=== PATIENT | male | born 1980 | race Caucasian/White ===

== ENCOUNTER → 2018-02-04 10:21 | Outpatient (CLI) | payer OTHER, SELFPAY ==
[2018-02-04 12:00] LABS: Hematocrit 43.7 % (40-54); Hemoglobin 14.7 g/dl (13.0-16.5); Mean Corp Hgb Conc 33.6 g/gl (32-36); Mean Corpuscular Hgb 28.7 pg (27.0-32.0); Mean Corpuscular Volume 85.2 fL (80-94); Mean Platelet Vol. 10.3 fl (6.2-12.0); Platelet Count 274 K/mm3 (150-450); RBC Distribution Width CV 13.2 % (11.6-14.6); RBC Distribution Width SD 40.9 fl (35.1-43.9); Red Blood Count 5.13 M/mm3 (4.6-6.2); White Blood Count 4.3 K/mm3 (4.4-11.0)
[2018-02-04 12:06] LABS: Scan Indicated on CBC? Y/N NO
[2018-02-04 12:24] LABS: ALB/GLOB Ratio 1.2 RATIO (0.9-2.4); AST(SGOT) 23 U/L (15-37); Alanine Aminotransfer ALT/SGPT 31 U/L (16-61); Albumin, Serum 4.2 g/dL (3.2-5.0); Alkaline Phosphatase 46 U/L (45-117); Anion Gap 9 (5-15); BUN 14 mg/dL (7-18); BUN/Creat Ratio 11.8 RATIO (10-20); Calcium,Total 9.4 mg/dL (8.5-10.1); Chloride 106 mmol/L (98-107); Creatinine, Serum 1.19 mg/dL (0.70-1.30); EST Glomerular Filtration Rate 73 mL/min (>60); Est Glom Filt Rate - Afr Amer 89 mL/min (>60); Globulin 3.5 g/dL (2.2-4.2); Glucose 93 mg/dL (74-106); Lipase 126 U/L (73-393); Potassium 4.2 mmol/L (3.5-5.1); Protein, Total 7.7 g/dL (6.4-8.2); Sodium Level 141 mmol/L (136-145)
--- OUTSIDE RECORDS SUMMARY | 2018-03-23 05:26 | XMS RPT_ITS ---
:1980 Author Organization OHIP Care Team Providers Name Role Phone Sybil Eugene Vazquez Primary Care Unavailable Freedom Gonzales Attending Unavailable Quique Vogt Attending Unavailable Moises Roche Referring Unavailable Quique Vogt Attending Unavailable Quique Vogt Referring Unavailable Moises Roche Primary Care Unavailable PROBLEMS PROBLEMS DATE TYPE CONDITION / CODE ATTENDING STATUS SOURCE 02/09/2018 Unknown R10.33 - Quique Vogt Active [place] Periumbilical pain [facility] / R10.33(ICD-10) Hospital Repository PROCEDURES PROCEDURES No Procedure Records FoundRESULTS RESULTS SURGERY VISIT REPORT Observed: 02/09/2018 Status: F Source: [place] 5:09 PM [facility] REPOSITORY [facility] [address] [place] [address]. [address] [place] [address] OFFICE VISIT Date of Service: 02/09/18 MR#: [id number] Acct: [id number] Name: PATRICK NICKERSON Rep #: [id number] : 1980 Provider: Quique Vogt MD Age/Sex: 37/M Location: [facility] Status: Signed Intake Vital Signs02/09/18 Height 5 ft 10 in 02/09/18 Weight: 180 lb 12 oz 02/09/18 Body Mass Index (BMI) 25.9 02/09/18 Blood Pressure 122/72 H Intake Visit Reasons: Umblical Hernia? Chief Complaint: umbilical pain, hx umbilical hernia repair [facility] Work[facility] Assisted Living Required: No Is patient in pain?: No Allergies No Known Allergies Allergy (Verified 02/09/18 15:20) Medications ibuprofen 400 mg tablet 400 mg PO BID PRN 02/09/18 [History Confirmed 02/09/18] [facility] Medical History Abdominal pain (Acute) No pertinent past medical history (Acute) Surgical History History of umbilical hernia repair (Acute) history of toenail avulsion (Acute) Family History Father Asthma Mother Asthma Social History Smoking Status: Never smoker HPI HPI HPI: PATRICK NICKERSON, is a 37 M who presents to the office today for surgical consultation regarding periumbilical pain. The patient was referred by his primary care physician Dr. Moises Roche and a written compromise surgical consult recommendations will be returned to him. 2011 the patient states he had an umbilical herniorrhaphy. He states it is small umbilical hernia and it was simply repaired with suture. No mesh was involved. 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 Couple weeks ago he developed periumbilical pain. 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 He has had some slight decreased caliber in his stool. He is complained of some pressure sensation in the right upper quadrant and the next day some pressure sensation in the left upper quadrant. He has the sense that things are scoring around moving around inside. He has not had any fever or chills or sweats no nausea or vomiting. February 04, 2018 white blood cell count was 4.3 with hemoglobin 14.7 hematocrit 43.7 platelet count 274,000. BUN 14 creatinine 1.19. Liver panel was normal. The patient was scheduled to have a noncontrasted CT today. There is concerned that he might have a recurrent ventral incisional periumbilical hernia. He states that it is close to the umbilical site where the pain seems to start and then radiate out. He himself cannot feel a mass. The pain does subside slowly when he lies supine but he suggested takes a while. He does not seem to have food intolerance ROS General General: No weight change, appetite, fatigue, colon cancer, breast cancer or weakness HEENT HEENT: No difficulty swallowing, eye injury, eye surgery, swollen glands or hoarseness Musc Musculoskeletal: No back problems, arthritis, rheumatoid arthritis, gout or joint pain Cardio Cardiovascular: No murmur, pacemaker, heart disease, atrial fibrillation, high blood pressure, heart attack, heart stent, palpitations, shortness of breat with exertion or chest pain Resp Respiratory: No shortness of breath, No sleep apnea, No cough, No COPD, No asthma, No emphysema, No wheezing Gastro Gastrointestinal: Yes abdominal pain, Yes nausea or vomiting, No diarrhea, No constipation, No blood in stool, No acid reflux, No hemorrhoids, No ulcers, No gallbladder problem, No black,tarry stools [place] Hematologic: No blood thinners, No blood disorders, No bleeding, No anemia, No blood clots Neuro Neurologic: No weakness Exam Const General: cooperative, healthy appearing, comfortable, no acute distress, well developed Nutritional Appearance: average body habitus Orientation: alert, awake, oriented x3 Other: Muscular physique Chest Chest palpation AND inspection: normal inspection of the chest Resp Effort AND Inspection: normal respiratory effort Auscultation: clear to auscultation bilaterally Cardio Rate: regular rate Rhythm: regular rhythm Heart Sounds: no murmurs GI Palpation: soft, no hepatosplenomegaly Auscultation: normal bowel sounds Other: Well-healed transverse incision inferior to the umbilicus. No focal point tenderness. No recurrent defect. The patient was examined both upright and supine. Normal bowel sounds Extrem General: no clubbing, cyanosis or edema Assessment AND Plan Problems 1. Periumbilical abdominal pain R10.33 Plan At this point clinically I cannot detect a recurrent ventral umbilical hernia. The patient's symptoms sound more musculoskeletal but I cannot pinpoint an area of defect. Some of the symptoms radiate to the right and then left upper quadrant. The etiology to his concerns at this moment are indeterminant. I do recommend canceling the noncontrasted CT in deference to proceeding with a oral and IV contrasted CT. The patient and his are aware. Pending the results of that information I may be able to provide further surgical direction. At this point the patient does not appear to have an acute surgical abdomen. I am not able to detect a recurrent defect. I appreciate the opportunity of assisting with surgical care although at this moment it is not clear to me I will be able to diagnose the etiology to his problem. CC: Dr. Moises Vogt M.D., F.A.C.S. Orders Orders: Coding Level of Care Code Detailed, Low Diagnoses Periumbilical abdominal pain R10.33 Abdominal location: periumbilical 02/09/18 1709 <Electronically signed by Quique Vogt MD> Date Quique Vogt MD Cosigner Signature: Date (if applicable) CC: Moises Roche MD ABDOMEN WITH IV Observed: 02/09/2018 Status: F Source: [place] CONTRAST 3:52 PM [facility] REPOSITORY [facility] Imaging Services [address] [place] [address] Abdomen WITH IV Contrast MR#: [id number] Acct: [id number] Name: PATRICK NICKERSON Rep #: [id number] : 1980 M 37 From: Jovany Vanegas MD PCP: Moises Roche MD Status: REG CLI Study: Abdomen WITH IV Contrast Date of Exam: 02/09/18 Exam# [id number] Ordering Dr: Quique Vogt MD STUDY: CT ABDOMEN WITH CONTRAST REASON FOR EXAM: Male, 37 years old. RADIATION DOSAGE (If Supplied By Facility): CTDIvol = ( 11.34 ) mGy, DLP = ( 441.45 ) mGycm TECHNIQUE: Transaxial images were obtained post I.V. administration of 100mL ml of Isovue 300 contrast, and with oral contrast. Sagittal and coronal images were reconstructed. Individualized dose optimization techniques were used for this CT. COMPARISON: None. FINDINGS: The visualized lung bases are unremarkable. The visualized portions of the heart are within normal limits. Normal liver. Normal gallbladder and extrahepatic biliary system. Normal spleen. Normal pancreas. Normal bilateral adrenal glands. Normal right kidney. Normal left kidney. Normal visualized stomach. Normal small intestine. Retained stool noted throughout the colon The appendix is visualized and appears normal. Appendix best seen on coronal recon image 46. Normal abdominal aorta. Normal inferior vena cava. Normal retroperitoneum. Normal abdominal wall. Normal osseous structures. CT/Abdomen WITH IV Contrast IMPRESSION: No suspicious solid organ abnormality Retained stool throughout the colon No CT evidence of an acute inflammatory process, normal appendix visualized Electronically Signed: Saurav Vanegas MD at 18:32 EST , Service support , CC: Moises Roche MD; Quique Vogt MD Money Room Teller: Signed CBC-COMPLETE BLOOD CNT Collected: 02/04/2018 Status: F Source: [place] NO DIFF 10:33 AM [facility] REPOSITORY TYPE CODE TESTS RESULT OUT OF RANGE REFERENCE UNITS LAB L100.1000 4.4-11.0 K/mm3 Low WBC 4.3 LAB L100.1200 4.6-6.2 M/mm3 Normal RBC 5.13 LAB L100.1300 13.0-16.5 g/dl Normal HGB 14.7 LAB L100.1400 40-54 % Normal HCT 43.7 LAB L100.1500 80-94 fL Normal MCV 85.2 LAB L100.1600 27.0-32.0 pg Normal MCH 28.7 LAB L100.1700 32-36 g/gl Normal MCHC 33.6 LAB L100.1810 11.6-14.6 % Normal RDW CV 13.2 LAB L100.1820 35.1-43.9 fl Normal RDW SD 40.9 LAB L100.1900 150-450 K/mm3 Normal PLT 274 LAB L100.2000 6.2-12.0 fl Normal MPV 10.3 Performed By: #### L100.0500, L500.4050, L501.2450 #### [facility] [address] [place], [address] COMPREHENSIVE METABOLIC Collected: 02/04/2018 Status: F Source: [place] [facility] 10:33 AM [facility] REPOSITORY TYPE CODE TESTS RESULT OUT OF RANGE REFERENCE UNITS LAB L501.0100 74-106 mg/dL Normal GLU 93 Result Comment: Please note revised GLUCOSE reference range effective 2017. LAB L501.1000 7-18 mg/dL Normal BUN 14 LAB L501.1100 0.70-1.30 mg/dL Normal CREAT,SERUM 1.19 Result Comment: The validity of the calculated GFR AND GFRAA in patients over 70 years has not been determined. Clinical correlation is essential. LAB L501.1110 >60 mL/min Normal EST GFR 73 Result Comment: Non- GFR Calc LAB L501.1115 >60 mL/min Normal EST GFR - AA 89 Result Comment: GFR Calc LAB L501.1300 10-20 RATIO Normal BUN/CRE 11.8 LAB L501.1500 6.4-8.2 g/dL T Normal PROT 7.7 LAB L501.1800 3.2-5.0 g/dL Normal ALB 4.2 LAB L501.1950 2.2-4.2 g/dL Normal GLOB 3.5 LAB L501.2000 0.9-2.4 RATIO Normal A/G 1.2 LAB L501.2200 8.5-10.1 mg/dL CA Normal 9.4 LAB L501.4100 15-37 U/L Normal AST 23 LAB L501.4305 45-117 U/L Normal ALK P 46 LAB L501.4405 16-61 U/L Normal ALT 31 LAB L501.4600 0.20-1.00 mg/dL T Normal BILI 0.80 LAB L501.5300 136-145 mmol/L NA Normal 141 LAB L501.5600 3.5-5.1 mmol/L K Normal 4.2 LAB L501.5900 98-107 mmol/L CL Normal 106 LAB L501.6100 21.0-32.0 mmol/L Normal CO2 26.0 LAB L501.6200 5-15 Normal GAP 9 Performed By: #### L100.0500, L500.4050, L501.2450 #### [facility] [address] [place], [address] LIPASE Collected: 02/04/2018 Status: F Source: [place] 10:33 AM [facility] REPOSITORY TYPE CODE TESTS RESULT OUT OF RANGE REFERENCE UNITS LAB L501.2450 73-393 U/L Normal LIPASE 126 Performed By: #### L100.0500, L500.4050, L501.2450 #### [facility] [address] [place], [address] ALLERGIES ALLERGIES DATE TYPE / CODE NAME / CODE REACTION SEVERITY SOURCE 02/09/2018 Drug No Known Unknown [facility] Allergy/4160 Allergies/F00 Hospital 74543(SNOMED 4633721(RXNOR Repository CT) M) ENCOUNTERS ENCOUNTERS ADMIT/DISCHARGE ACCOUNT ADMITTING ENCOUNTER LOCATION SOURCE NUMBER CLASS 02/09/2018 [id number] Ambulatory Cesario Cesario 9 [facility] ing:CT Repository 02/09/2018/ [id number] Ambulatory BMSBuilding:B Cesario 8 5 MSLawsonA [facility] Repository 02/04/2018 [id number] Ambulatory Cesario Cesario 7 [facility] ing:MFPLAB Repository PAYERS PAYERS ENCOUNTER GUARANTOR PAYER SUBSCRIBER SOURCE 02/09/2018 PATRICK S Primary PATRICK S [place] [id number] Insurance:MEDICAL MAUSOLFDOB: [facility] OHIOPolicy [id number] [place] Number: Repository [address]Whm: [phone] [id number] [phone] () Date:9002-94-45KI [address], [place] [address]JG: 02/09/2018 Secondary LUCIAN L Cesario Insurance:AULTCAREPol MAUSOLFDOB: [facility] Number: [id number] Hospital [id number] Repository Date:6051-39-93LZ [address], [place] [address]XK: 02/09/2018 Tertiary NOT GIVENUNK [place] Insurance:SELF PAY [facility] Number: Effective Repository Date:2018-02-09 02/09/2018 PATRICK S Primary PATRICK S [place] [id number] Insurance:MEDICAL MAUSOLFDOB: [facility] [id number] Number: Repository [address]Yiy: [phone] [id number] [phone] (HP) Date:0669-37-93CO [address] [place] [address]PG: 02/09/2018 Secondary NOT GIVENUNK [place] Insurance:SELF PAY [facility] Number: Effective Repository Date:2018-02-05 02/04/2018 Patrick S Primary Patrick S [place] [id number] Insurance:MEDICAL MausolfDOB: [facility] [id number] Number: Repository [id number]: [phone] [id number] [phone] (HP) Date:2936-75-90QX [address] [place] [phone]: 02/04/2018 Secondary LUCIAN L [place] Insurance:AULTCAREPol MAUSOLFDOB: [facility] Number: [id number] Hospital [id number] Repository Date:2247-23-38BG [address] [place] [address]TM: 02/04/2018 Tertiary NOT GIVENUNK Cesario Insurance:SELF PAY [facility] Number: Effective Repository Date:2018-02-04
== END ==
PROVIDERS: Visit Provider Nurse Practitioner Family
DX: R10.9 Unspecified abdominal pain (principal)
CPT/HCPCS: 36415; 80053; 83690; 85027

== ENCOUNTER → 2018-02-09 15:48 | Outpatient (CLI) | payer OTHER, SELFPAY ==
[2018-02-09 15:19] VITALS: BMI 25.9
--- NOTE | 2018-02-09 15:52 | CT_ITS ---
STUDY: CT ABDOMEN WITH CONTRAST REASON FOR EXAM: Male, 37 years old. RADIATION DOSAGE (If Supplied By Facility): CTDIvol = ( 11.34 ) mGy, DLP = ( 441.45 ) mGycm TECHNIQUE: Transaxial images were obtained post I.V. administration of 100mL ml of Isovue 300 contrast, and with oral contrast. Sagittal and coronal images were reconstructed. Individualized dose optimization techniques were used for this CT. COMPARISON: None. FINDINGS: The visualized lung bases are unremarkable. The visualized portions of the heart are within normal limits. Normal liver. Normal gallbladder and extrahepatic biliary system. Normal spleen. Normal pancreas. Normal bilateral adrenal glands. Normal right kidney. Normal left kidney. Normal visualized stomach. Normal small intestine. Retained stool noted throughout the colon The appendix is visualized and appears normal. Appendix best seen on coronal recon image 46. Normal abdominal aorta. Normal inferior vena cava. Normal retroperitoneum. Normal abdominal wall. Normal osseous structures. CT/Abdomen WITH IV Contrast IMPRESSION: No suspicious solid organ abnormality Retained stool throughout the colon No CT evidence of an acute inflammatory process, normal appendix visualized Electronically Signed: Saurav Vanegas MD at 18:32 EST , Service support ,
--- OUTSIDE RECORDS SUMMARY | 2018-05-14 04:57 | XMS RPT_ITS ---
[...] 02/09/2018 Unknown R10.33 - Quique Vogt Active [place] Periumbilical pain [facility] / R10.33(ICD-10) Hospital Repository PROCEDURES PROCEDURES No Procedure Records FoundRESULTS RESULTS SURGERY VISIT REPORT Observed: 02/09/2018 Status: F Source: [place] 5:09 PM [facility] REPOSITORY [facility] [address] [place] [address]. [address] [place] [address] OFFICE VISIT Date of Service: 02/09/18 MR#: [id number] Acct: [id number] Name: PATRICK NICKERSON Rep #: [id number] : 1980 Provider: Quique Vogt MD Age/Sex: 37/M Location: [facility] Status: Signed Intake Vital Signs02/09/18 Height 5 ft 10 in 02/09/18 Weight: 180 lb 12 oz 02/09/18 Body Mass Index (BMI) 25.9 02/09/18 Blood Pressure 122/72 H Intake Visit Reasons: Umblical Hernia? 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 Couple weeks ago he developed periumbilical [...] WITH IV Observed: 02/09/2018 Status: F Source: [place] CONTRAST 3:52 PM [facility] REPOSITORY [facility] Imaging Services [address] [place] [address] Abdomen WITH IV Contrast MR#: [id number] Acct: [id number] Name: PATRICK NICKERSON Rep #: [id number] : 1980 M 37 From: Jovany Vanegas MD PCP: Moises Roche MD Status: REG CLI Study: Abdomen WITH IV Contrast Date of Exam: 02/09/18 Exam# [id number] Ordering Dr: Quique Vogt MD STUDY: CT [...] CC: Moises Roche MD; Quique Vogt MD Cat Tender: Signed CBC-COMPLETE BLOOD CNT Collected: 02/04/2018 Status: F Source: [place] NO DIFF 10:33 AM [facility] REPOSITORY TYPE CODE TESTS RESULT OUT OF [...] Performed By: #### L100.0500, L500.4050, L501.2450 #### [facility] [address] [place], [address] COMPREHENSIVE METABOLIC Collected: 02/04/2018 Status: F Source: [place] [facility] 10:33 AM [facility] REPOSITORY TYPE CODE TESTS RESULT OUT OF [...] Performed By: #### L100.0500, L500.4050, L501.2450 #### [facility] [address] [place], [address] LIPASE Collected: 02/04/2018 Status: F Source: [place] 10:33 AM [facility] REPOSITORY TYPE CODE TESTS RESULT OUT OF RANGE REFERENCE UNITS LAB L501.2450 73-393 U/L Normal LIPASE 126 Performed By: #### L100.0500, L500.4050, L501.2450 #### [facility] [address] [place], [address] ALLERGIES ALLERGIES DATE TYPE / CODE NAME / CODE REACTION SEVERITY SOURCE 02/09/2018 Drug No Known Unknown [facility] Allergy/4160 Allergies/F00 Hospital 02626(SNOMED 1233672(RXNOR Repository CT) M) ENCOUNTERS ENCOUNTERS ADMIT/DISCHARGE ACCOUNT ADMITTING ENCOUNTER LOCATION SOURCE NUMBER CLASS 02/09/2018 [id number] Ambulatory Cesario Cesario 9 [facility] ing:CT Repository 02/09/2018/ [id number] Ambulatory BMSBuilding:B Cesario 8 5 MSLawsonA [facility] Repository 02/04/2018 [id number] Ambulatory Cesario Cesario 7 [facility] ing:MFPLAB Repository PAYERS PAYERS ENCOUNTER GUARANTOR PAYER SUBSCRIBER SOURCE 02/09/2018 PATRICK S Primary PATRICK S [place] [id number] Insurance:MEDICAL MAUSOLFDOB: [facility] OHIOPolicy [id number] [place], [place] Number: Repository [address]Qsk: [phone] [id number] [phone] () Date:7872-93-22VX [address] [address]UL: 02/09/2018 Secondary LUCIAN L Cesario Insurance:AULTCAREPol MAUSOLFDOB: [facility] Number: [id number] Hospital [id number] Repository Date:4488-82-22HJ [address], [place] [address]QZ: 02/09/2018 Tertiary NOT GIVENUNK [place] Insurance:SELF PAY [facility] Number: Effective Repository Date:2018-02-09 02/09/2018 PATRICK S Primary PATRICK S [place] [id number] Insurance:MEDICAL MAUSOLFDOB: [facility] [id number] Number: Repository [address]Dsy: [phone] [id number] [phone] (HP) Date:2054-36-04XR [address] [place] [address]XW: 02/09/2018 Secondary NOT GIVENUNK [place] Insurance:SELF PAY [facility] Number: Effective Repository Date:2018-02-05 02/04/2018 Patrick S Primary Patrick S [place] [id number] Insurance:MEDICAL MausolfDOB: [facility] [id number] Number: Repository [id number]: [phone] [id number] [phone] (HP) Date:5924-11-73GW [address] [place] [address]QH: 02/04/2018 Secondary LUCIAN L [place] Insurance:AULTCAREPol MAUSOLFDOB: [facility] Number: [id number] Hospital [id number] Repository Date:1849-08-29JO [address] [place] [phone]: 02/04/2018 Tertiary NOT GIVENUNK [place] Insurance:SELF PAY [facility] Number: Effective Repository Date:2018-02-04
== END ==
PROVIDERS: Family Provider Family Medicine; PCP Family Medicine; Referring Provider Surgery; Visit Provider Surgery
DX: R10.33 Periumbilical pain (principal)
CPT/HCPCS: 74160; Q9967

== ENCOUNTER 2020-02-14 18:54 | Emergency (ER) | payer OTHER, SELFPAY ==
[2018-02-09 15:19] VITALS: BMI 25.9
[2020-02-14 18:54] VITALS: BP 144/93; PULSE 65; RESP 16; TEMP 36.4; O2SAT 100; BMI 26.9
--- NOTE | 2020-02-14 19:39 | RAD_ITS ---
STUDY: X-RAY CHEST REASON FOR EXAM: Male, 39 years old. CHEST PAIN TECHNIQUE: AP portable COMPARISON: None. FINDINGS: The lungs are clear and expanded. There is no demonstrated pleural abnormality. Normal size heart. Normal mediastinum and jag. Normal visualized pulmonary arteries. Normal visualized aortic arch and descending thoracic aorta. Normal visualized thoracic spine. Normal visualized ribs, clavicles, and shoulders. There is no demonstrated abnormality of the visualized soft tissue structures of the upper abdomen. RAD/Chest 1 View (Portable) IMPRESSION: Normal x-ray examination of the chest. Electronically Signed: Wil Jaime MD at 20:11 EST , Service support ,
[2020-02-14 19:43] LABS: Absolute Lymphocyte Count 2.68 X10^3/uL (0.83-4.51); Absolute Neutrophil Count 3.2 X10^3/uL (2.0-7.7); Basophil# 0.05 X10^3/uL; Basophil% 0.8 % (0-1); Eosinophil# 0.12 X10^3/uL; Eosinophils% 1.8 % (0-5); Hematocrit 39.9 % (40-54); Hemoglobin 13.3 g/dL (13.0-16.5); Lymphocyte # 2.68 X10^3/ul (4.0); Lymphocyte % 40.3 % (19-41); Mean Corp Hgb Conc 33.3 g/dL (32-36); Mean Corpuscular Volume 87.1 fL (80-94); Monocyte# 0.57 X10^3/uL; Monocyte% 8.6 % (0-10); NRBC Flagged by Analyzer 0 % (0-5); Neutrophil # 3.22 X10^3/uL (2.7-7.7); Neutrophil % 48.3 % (47-70); Platelet Count 259 K/mm3 (150-450); RBC Distribution Width CV 13.3 % (11.6-14.6); RBC Distribution Width SD 42.5 fl (35.1-43.9); Red Blood Count 4.58 M/mm3 (4.6-6.2); White Blood Count 6.7 K/mm3 (4.4-11.0)
--- NOTE | 2020-02-14 19:48 | ED.VIS.GEN ---
History of Present Illness Chief Complaint: Chest Other Informant: Patient Narrative: Patient is a 39-year-old previously healthy male who presents to the emergency department for chest pain. This is substernal and does not radiate. Currently rates the pain as a 3-4 out of 10. He tried taking Pepcid earlier today which did not give any relief. His symptoms have been present constantly for the past 2 months. Just prior to starting he believes that he had coronavirus. He never got a confirmation test. He states at that time he had body aches, chills, congestion and a cough. All the symptoms have since resolved. He has no related shortness of breath with this. No abdominal pain or nausea/vomiting. No leg swelling or calf pain. Denies any history of CAD. No history of DVT/PE. He denies smoking. He denies ever having this happen before in the past. Exerting himself does not seem to aggravate it. When he was working on the yard this actually seems to relieve it and then when he goes inside in the heat he starts to notice it more. Past Medical History - Allergies and Home Meds Allergies/Adverse Reactions: Allergies No Known Allergies Allergy (Verified 02/14/20 18:56) Primary Care Physician: Moises Roche MD [STAFF PHYSICIAN] - 3-5 Days Prior records reviewed: Yes Past Medical History: None Surgical History: noncontributory Smoking Status: Never smoker Review of Systems All systems negative except as indicated General: Denies: Chills, Fever, Sweats Eyes: Denies: Visual changes - bilaterally, Diplopia ENT: Denies: Rhinorrhea, Sore throat Cardiovascular: Reports: Chest pain. Denies: Palpitations Respiratory: Denies: Dyspnea, Cough, Dyspnea on exertion Gastrointestinal: Denies: Abdominal pain, Nausea, Vomiting, Diarrhea Genitourinary: Denies: Dysuria, Hematuria, Frequency Musculoskeletal: Denies: Back pain, Extremity Pain Skin: Denies: Rash, Wounds Neurological: Denies: Headache, Weakness, Numbness Physical Exam Vital Signs/Narrative: Vital Signs Temp Pulse Resp BP Pulse Ox 02/14/20 18:54 97.5 F L 65 16 144/93 H 100 General: Well nourished, Well developed, No Acute Distress Head: Normocephalic, Atraumatic Eyes: Perrl, EOMI ENT: Moist mucous membranes, No rhinorrhea Neck: Supple, Nontender Cardiovascular: Regular rate, Regular rhythm, No murmurs Respiratory: No distress, CTA bilaterally, Chest nontender Abdomen: Soft, Nontender, Nondistended, Normal bowel sounds Back: Nontender, Normal Inspection Extremities: Nontender, No edema. Negative for: Calf Tenderness Skin: Normal color, No rash Neurological: Alert, Normal Strength, Normal Sensation Psychological: Normal affect, Normal Mood Diagnostic/Tx/Re-eval Chest X-Ray - ED: - - Single view portable x-ray interpreted by myself. Clear lung juan bilaterally. Normal cardiac silhouette. Normal mediastinum. No acute process noted. Agree with radiologist interpretation. - EKG Initial EKG Interpretation: - - Rate of 59 bpm normal sinus rhythm. Normal intervals. Normal axis. No ST elevations or depressions. No T wave abnormalities. - Medical Decision Making Patient presents to the ED for chest pain. This been present for the past 2 months. It is mild in nature. Upon arrival to the ED is in no apparent distress. Is not tachycardic and not hypoxic. Concern for pulmonary embolism. He has no shortness of breath associated with this. Will check basic lab work, troponin, EKG and chest x-ray. Was given a dose of Toradol for symptomatic relief. Patient's work-up showed his D-dimer to be elevated. CTA was obtained at that time. This did not show any evidence of PE. His troponin within normal limits. He is not anemic. Electrolyte are within normal limits. Due to have a great explanation for his pain at this time does not appear cardiac in nature. No evidence of aortic dissection. Is been very mild and lasting for multiple months now. Will recommend symptomatic treatment at home. He is to follow-up with his PCP. Warning signs and symptoms for which return to the ED including any worsening pain or developing any shortness of breath are reviewed. He understands and is agreeable this plan. Discharged in stable condition. All questions were answered. ED Disposition - Plan for ED Patient: Disposition: Home or Assisted Living Diagnosis: Chest pain Instructions: ED Chest Pain, Uncertain Cause Referrals: Moises Roche MD [STAFF PHYSICIAN] - 3-5 Days
[2020-02-14] MEDS: Ketorolac 15 MG/ML Vial IV (19:50)
[2020-02-14 20:00] LABS: Anion Gap 6 (5-15); BUN 16 mg/dL (7-18); BUN/Creat Ratio 15.1 RATIO (10-20); Calcium,Total 9.5 mg/dL (8.5-10.1); Chloride 107 mmol/L (98-107); Creatinine, Serum 1.06 mg/dL (0.70-1.30); EST Glomerular Filtration Rate 83 mL/min (>60); Est Glom Filt Rate - Afr Amer 100 mL/min (>60); Estimated Creatinine Clearance 100.64 ml/min; Glucose 73 mg/dL (74-106); Potassium 3.9 mmol/L (3.5-5.1); Sodium Level 139 mmol/L (136-145)
[2020-02-14 20:27] LABS: D-Dimer Quantitative (DVT/PE) 0.75 FEU/ug/m (0.27-0.49)
--- NOTE | 2020-02-14 20:31 | CT_ITS ---
STUDY: CTA CHEST REASON FOR EXAM: Male, 39 years old. CHEST DISCOMFORT SINCE COVID LIKE SYMPTOMS SINCE OCT, ELEVATED D-DIMER. RADIATION DOSAGE (If Supplied By Facility): CTDIvol = ( 13.585 ) mGy, DLP = ( 503.13 ) mGycm TECHNIQUE: The examination was performed with the intravenous administration of IV 100mL [id number]-370. Post-processing of the angiographic images was performed, with multiplanar reformation and 3D reconstruction. Individualized dose optimization techniques were used for this CT. COMPARISON: None. FINDINGS: Normal enhancement of the main pulmonary artery and right and left pulmonary arteries. Normal enhancement of the bilateral peripheral pulmonary arteries. There is no demonstrated pulmonary embolism. Normal thoracic aorta and visualized great vessels. There is no demonstrated aortic dissection. Normal heart and pericardium. Normal mediastinum. Normal hilar regions. Normal visualized trachea and bronchi. The lungs are well expanded. There is minimal atelectasis within the dependent portion lungs. There is no focal infiltration or pulmonary nodule. Normal pleura. Normal chest wall structures. Normal osseous structures. Normal visualized upper abdomen. CT/CTA Chest W/WO Contrast IMPRESSION: Minimal atelectasis within the dependent portion lungs. No focal infiltration or pulmonary nodule.. No evidence for pulmonary emboli Electronically Signed: Wil Jaime MD at 21:06 EST , Service support ,
[2020-02-14 20:52] VITALS: BP 129/66; PULSE 59; RESP 16; O2SAT 98
--- NOTE | 2020-02-14 21:11 | ED.RN ---
spoke with for pt update.
== END 2020-02-14 21:37 | disposition home or self-care (01) ==
PROVIDERS: Emergency Provider Emergency Medicine; PCP Nurse Practitioner Primary Care
DX: R07.9 Chest pain, unspecified (principal)
CPT/HCPCS: 71045; 71275; 80048; 84484; 85025; 85379; 93005; 96374; 99284; Q9967; A4216